=== PATIENT | male | born 2000 | race African-American/Black ===

== ENCOUNTER 2019-02-18 21:26 | Emergency (ER) | payer SELFPAY ==
[~2019-02-18] VITALS: Ht 188 cm; Wt 76.7 kg
[2019-02-18 21:28] VITALS: BP 149/71; PULSE 62; RESP 18; Ht 188 cm; Wt 76.7 kg
== END 2019-02-18 22:00 | disposition left against medical advice (07) ==
LOC: FTE 21:26
DX: Z53.21 Procedure and treatment not carried out due to patient leaving prior to being seen by health care provider (principal)